=== PATIENT | female | born 1985 | race Hispanic/Latino ===

== ENCOUNTER 2017-04-11 10:28 | Emergency (ER) | payer SELFPAY ==
[2017-04-11 11:05] LABS: Bilirubin Negative (Negative); Blood, Urine Trace (Negative); Glucose, Urine (Dipstick) Negative (Negative); Leukocyte Negative (Negative); Nitrite Negative (Negative); Protein, Urine (Dipstick) Negative (Neg-Trace); Urobilinogen 0.2 mg/dL (0.2-1.0)
[2017-04-11 11:07] LABS: Clarity HAZY (Clear)
[2017-04-11 11:08] LABS: Pregnancy Test - Urine (BHCG) Negative (Negative); Pregu Control Background? CLEAR/WHITE (CLR/WHITE); Pregu Control Bar Appear? YES (CONTROL BAR)
[2017-04-11 11:11] LABS: Bacteria/HPF None Seen HPF (None Seen); Hyaline Casts/LPF NONE SEEN LPF (0-3 Hyaline); RBC/HPF 0-3 HPF (0-3); Squamous Epithelial 0-3 HPF (0-3); WBC/HPF None Seen HPF (0-3)
[2017-04-13 21:14] LABS: Chlamydia by PCR Not Detected (NotDetected); GC by PCR Not Detected (NotDetected)
== END 2017-04-11 11:53 | disposition home or self-care (01) ==
LOC: ERS 10:28
DX: R30.0 Dysuria (principal)
CPT/HCPCS: 81003; 81015; 81025; 87491; 87591; 99284

== ENCOUNTER 2017-07-16 23:53 | Emergency (ER) | payer SELFPAY ==
[2017-07-17 00:24] LABS: #Basophils 0.1 thou/uL (0.0-0.2); #Eosinphils 0.1 thou/uL (0.0-0.7); #Lymphocytes 2.6 thou/uL (1.20-3.40); #Monocytes 0.5 thou/uL (0.11-0.59); #Neutrophils 5.5 thou/uL (1.40-6.50); %Basophils 0.7 % (0.0-1.0); %Eosinophils 1.4 % (0.0-10.0); %Lymphocytes 29.6 % (21.0-51.0); %Neutrophils 62.3 % (42.0-75.0); Hemoglobin 14.6 g/dL (12.0-16.0); Mean Corpuscular HGB CONC 34.2 g/dL (32.0-36.0); Mean Corpuscular Hemoglobin 30.8 pg (27.0-31.0); Mean Corpuscular Volume 90.1 fl (81.0-99.0); Mean Platelet Volume 6.4 fL (7.4-10.4); Platelet Count 315 thou/uL (130-400); Red Blood Cell (RBC) Count 4.73 mill/uL (4.20-5.40); White Blood Cell (WBC) Count 8.8 thou/uL (4.8-10.8)
[2017-07-17 00:47] LABS: ALT (SGPT) 20 U/L (8-55); AST (SGOT) 19 U/L (5-34); Albumin 4.1 g/dL (3.5-5.0); Alkaline Phosphatase 85 U/L (40-150); Anion Gap 10 mmol/L (10-20); BUN (Urea Nitrogen) 11 mg/dL (7.0-18.7); Bilirubin, Total 0.3 mg/dL (0.2-1.2); Calc. Creatinine Clearance 0 mL/min (70-130); Calcium 9.5 mg/dL (7.8-10.44); Carbon Dioxide 27 mmol/L (22-29); Chloride 104 mmol/L (98-107); Estimated GFR-MDRD Greater than 90; Globulin 3.2 g/dL (2.4-3.5); Glucose 88 mg/dL (70-105); Lipase 23 U/L (8-78); Potassium 3.8 mmol/L (3.5-5.1); Protein, Total 7.3 g/dL (6.0-8.3); Sodium 137 mmol/L (136-145)
[2017-07-17] MEDS ORDERED: Mag-Al 1200 mg/1200 mg/30 ML UDCUP ONE (00:53)
[2017-07-17] MEDS ORDERED: Lidocaine Viscous Sol 2% 15 ml UD Cup ONE (00:53)
[2017-07-17] MEDS ORDERED: Famotidine 20 MG TAB ONE (00:53)
[2017-07-17] MEDS ORDERED: Ondansetron ODT 4 MG TAB ONE (00:53)
[2017-07-17 00:57] LABS: Bilirubin Negative (Negative); Blood, Urine Negative (Negative); Clarity CLEAR (Clear); Glucose, Urine (Dipstick) Negative (Negative); Leukocyte Negative (Negative); Nitrite Negative (Negative); Protein, Urine (Dipstick) Trace mg/dL (Neg-Trace); Specific Gravity, Urine 1.023 (1.002-1.036); pH, Urine 7.5 (5.0-9.0)
[2017-07-17 01:13] LABS: Pregnancy Test - Urine (BHCG) Negative (Negative); Pregu Control Background? CLEAR/WHITE (CLR/WHITE); Pregu Control Bar Appear? YES (CONTROL BAR); Specific Gravity 1.023 (1.002-1.036)
== END 2017-07-17 02:55 | disposition home or self-care (01) ==
LOC: ERS 23:53
DX: K29.70 Gastritis, unspecified, without bleeding (principal)
CPT/HCPCS: 80053; 81003; 81025; 83690; 85025; 96360; Q0162

== ENCOUNTER 2017-11-18 09:39 | Emergency (ER) | payer SELFPAY ==
[2017-11-18 10:36] LABS: BHCG - Serum Negative (NEGATIVE); Pregs Control Background? CLEAR/WHITE (CLR/WHITE); Pregs Control Bar Appear? YES (CONTROL BAR)
[2017-11-18 11:20] LABS: Bilirubin Negative (Negative); Blood, Urine Negative (Negative); Glucose, Urine (Dipstick) Negative (Negative); Leukocyte Negative (Negative); Nitrite Negative (Negative); Protein, Urine (Dipstick) Negative (Neg-Trace); Specific Gravity, Urine 1.015 (1.005-1.030); Urobilinogen 0.2 mg/dL (0.2-1.0)
[2017-11-18 11:21] LABS: Clarity CLEAR (Clear)
[2017-11-21 05:32] LABS: Chlamydia by PCR Not Detected (NotDetected); GC by PCR Not Detected (NotDetected)
== END 2017-11-18 11:45 | disposition home or self-care (01) ==
LOC: ERS 09:39
DX: N76.0 Acute vaginitis (principal)
CPT/HCPCS: 36415; 81003; 84703; 87480; 87491; 87510; 87591; 87660; 99283

== ENCOUNTER 2017-11-26 23:56 | Emergency (ER) | payer SELFPAY ==
[2017-11-27] MEDS ORDERED: Ketorolac Tromethamine 30 MG/ML VIAL ONE (01:08)
[2017-11-27 01:22] LABS: #Basophils 0.1 thou/uL (0.0-0.2); #Eosinphils 0.3 thou/uL (0.0-0.7); #Lymphocytes 2.7 thou/uL (1.20-3.40); #Monocytes 0.5 thou/uL (0.11-0.59); #Neutrophils 4.7 thou/uL (1.40-6.50); %Basophils 1.2 % (0.0-1.0); %Eosinophils 3.1 % (0.0-10.0); %Lymphocytes 32.9 % (21.0-51.0); %Monocytes 5.5 % (0.0-10.0); %Neutrophils 57.3 % (42.0-75.0); Hemoglobin 12.7 g/dL (12.0-16.0); Mean Corpuscular Hemoglobin 30.3 pg (27.0-31.0); Mean Corpuscular Volume 91.8 fL (78.0-98.0); Mean Platelet Volume 6.6 fL (7.4-10.4); Platelet Count 413 thou/uL (130-400); White Blood Cell (WBC) Count 8.2 thou/uL (4.8-10.8)
[2017-11-27 01:32] LABS: BHCG - Serum Negative (NEGATIVE); Pregs Control Background? CLEAR/WHITE (CLR/WHITE); Pregs Control Bar Appear? YES (CONTROL BAR)
[2017-11-27 01:42] LABS: Bilirubin Negative (Negative); Blood, Urine Large (Negative); Clarity CLOUDY (Clear); Glucose, Urine (Dipstick) Negative (Negative); Leukocyte Small (Negative); Nitrite Negative (Negative); Protein, Urine (Dipstick) Negative (Neg-Trace); Specific Gravity, Urine 1.025 (1.002-1.036); Urobilinogen 0.2 mg/dL (0.2-1.0); pH, Urine 6.5 (5.0-9.0)
[2017-11-27 01:44] LABS: Bacteria/HPF None Seen HPF (None Seen); Hyaline Casts/LPF 4-6 HYALINE CAST LPF (0-3 Hyaline); Pathc Cast-AUWi Flag 1.16 (0-2.49); RBC/HPF GREATER THAN 50-TNTC HPF (0-3); Squamous Epithelial 0-3 HPF (0-3); WBC/HPF 21-50 HPF (0-3)
[2017-11-27 01:47] LABS: ALT (SGPT) 17 U/L (8-55); AST (SGOT) 18 U/L (5-34); Albumin 3.7 g/dL (3.5-5.0); Alkaline Phosphatase 95 U/L (40-150); Anion Gap 11 mmol/L (10-20); BUN (Urea Nitrogen) 11 mg/dL (7.0-18.7); Bilirubin, Total 0.2 mg/dL (0.2-1.2); Calc. Creatinine Clearance 0 mL/min (70-130); Calcium 9.2 mg/dL (7.8-10.44); Carbon Dioxide 25 mmol/L (22-29); Chloride 106 mmol/L (98-107); Estimated GFR-MDRD Greater than 90; Glucose 90 mg/dL (70-105); Potassium 3.8 mmol/L (3.5-5.1); Protein, Total 6.7 g/dL (6.0-8.3); Sodium 138 mmol/L (136-145)
[2017-11-27 01:55] LABS: Crystals/HPF 1+ CA OXALATE HPF (Negative)
[2017-11-27 01:56] LABS: Renal Epithelial None Seen HPF (0-3); Transitional Epithelial NONE SEEN HPF (0-3)
--- NOTE | 2017-11-27 11:04 | ULT ---
PRELIMINARY REPORT/[facility]/EMERGENCY AFTER HOURS PROCEDURE: EXAM: US Pelvis Complete, Transabdominal CLINICAL HISTORY: 32 years old, female; Pain; Other: Pelvic pain, heavy vag bleeding, +clots; Prior surgery; Surgery da te: 6+ months; Surgery type: TECHNIQUE: Real-time transabdominal pelvic ultrasound (complete) with image documentation. COMPARISON: No relevant prior studies available. FINDINGS: The uterus appears somewhat enlarged, measuring 12.5 cm in length. Round to oval echogenic area/"mass" in the region of the lower uterine segment/cervix. This area measures 45 x 38 x 40 mm. The appearance is nonspecific. Possibly this could represent clot in the lower uterine segment. However, this might represent some type of uterine/cervical mass or polyp. Appropriate gynecological workup/followup recommended, as clinically directed. Endometrial thickness the fundus of the uterus is 2.2 mm mm. There is no free pelvic fluid. The right ovary appears unremarkable. The left ovary appears unremarkable. Blood flow detected in each ovary. The urinary bladder was not completely evaluated/imaged at this time. IMPRESSION: 45 x 38 x 40 mm echogenic area/"mass" in the region of the lower uterine segment/cervix. The appearance is nonspecific. Possibly this could represent clot in the lower uterine segment. However, this might represent some type of uterine/cervical mass or polyp. See above discussion. Essentially unremarkable sonographic appearance of the ovaries. Other details discussed above. EXAM: US Pelvis, Transvaginal CLINICAL HISTORY: 32 years old, female; Pain; Other: Pelvic pain, heavy vag bleeding, +clots; Prior surgery; Surgery da te: 6+ months; Surgery type: TECHNIQUE: Real-time transvaginal pelvic ultrasound (complete) with image documentation. Transvaginal imaging wa s used for better evaluation of the endometrium and adnexa. COMPARISON: No relevant prior studies available. FINDINGS: The uterus appears somewhat enlarged, measuring 12.5 cm in length. Round to oval echogenic area/"mass" in the region of the lower uterine segment/cervix. This area measures 45 x 38 x 40 mm. The appearance is nonspecific. Possibly this could represent clot in the lower uterine segment. However, this might represent some type of uterine/cervical mass or polyp. Appropriate gynecological workup/followup recommended, as clinically directed. Endometrial thickness the fundus of the uterus is 2.2 mm. There is no free pelvic fluid. The right ovary appears unremarkable. The left ovary appears unremarkable. Blood flow detected in each ovary. The urinary bladder was not completely evaluated/imaged at this time. Endovaginal scanning provided better visualization/evaluation of the endometrium and ovaries/adnexal regions as discussed above. IMPRESSION: 45 x 38 x 40 mm echogenic area/"mass" in the region of the lower uterine segment/cervix. The appearance is nonspecific. Possibly this could represent clot in the lower uterine segment. However, this might represent some type of uterine/cervical mass or polyp. See above discussion. Essentially unremarkable sonographic appearance of the ovaries. Other details discussed above. Thank you for allowing us to participate in the care of your patient. Dictated and Authenticated by: Paulo Suazo MD 11/27/2017 3:05 AM Central Time ([place] & [place]) FINAL REPORT EMERGENT AFTER HOURS PELVIC ULTRASOND: DATE: 11/27/17. TECHNIQUE: Multiple transabdominal and endovaginal sonographic images of the pelvis are obtained. HISTORY: Heavy vaginal bleeding with clots, pelvic pain. IMPRESSION: 1. Enlarged uterus measuring 12.5 cm x 4.3 cm x 5.8 cm. 2. Slightly heterogeneous oval mass-like structure in the region of the lower uterine segment/cervix measuring 4.5 cm x 3.8 cm x 4 cm. This appearance is nonspecific and could potentially represent he morrhage/clot in the lower uterine segment, although a mass in this region cannot be entirely exclude d. Short interval followup examination may be helpful to ensure resolution. 3. Normal-appearing bilateral ovaries. Doppler evaluation of each ovary with spectral analysis and color flow evaluation demonstrates venous flow in each ovary as well as arterial flow in the right ov apple. Arterial flow in the left ovary is difficult to definitely elicit, but some of the provided saturnino ges suggest that there is arterial flow. 4. No free fluid in the cul-de-sac. 5. Findings are in agreement with the preliminary report by [facility]. POS: [facility]
== END 2017-11-27 03:46 | disposition home or self-care (01) ==
LOC: ERS 23:56
DX: N92.0 Excessive and frequent menstruation with regular cycle (principal)
CPT/HCPCS: 76856; 80053; 81003; 81015; 84703; 85025; 87086; 96374; J1885

== ENCOUNTER 2017-12-02 07:19 | Emergency (ER) | payer SELFPAY ==
[2017-12-02] MEDS ORDERED: Ketorolac Tromethamine 30 MG/ML VIAL ONE (08:16)
[2017-12-02 08:29] LABS: Bilirubin Negative (Negative); Blood, Urine Negative (Negative); Clarity CLEAR (Clear); Glucose, Urine (Dipstick) Negative (Negative); Leukocyte Moderate (Negative); Nitrite Negative (Negative); Protein, Urine (Dipstick) Negative (Neg-Trace); Specific Gravity, Urine 1.018 (1.002-1.036); Urobilinogen 0.2 mg/dL (0.2-1.0)
[2017-12-02 08:31] LABS: Bacteria/HPF None Seen HPF (None Seen); Hyaline Casts/LPF 0-3 HYALINE CAST LPF (0-3 Hyaline); Pathc Cast-AUWi Flag 0.29 (0-2.49); RBC/HPF 0-3 HPF (0-3); Squamous Epithelial 0-3 HPF (0-3); WBC/HPF 21-50 HPF (0-3)
[2017-12-02 08:37] LABS: #Basophils 0.1 thou/uL (0.0-0.2); #Eosinphils 0.2 thou/uL (0.0-0.7); #Lymphocytes 2.3 thou/uL (1.20-3.40); #Monocytes 0.4 thou/uL (0.11-0.59); #Neutrophils 5.3 thou/uL (1.40-6.50); %Basophils 0.8 % (0.0-1.0); %Eosinophils 2.3 % (0.0-10.0); %Lymphocytes 27.7 % (21.0-51.0); %Monocytes 5.1 % (0.0-10.0); %Neutrophils 64.2 % (42.0-75.0); Hemoglobin 13.2 g/dL (12.0-16.0); Mean Corpuscular HGB CONC 32.5 g/dL (32.0-36.0); Mean Corpuscular Hemoglobin 29.3 pg (27.0-31.0); Mean Corpuscular Volume 90.4 fL (78.0-98.0); Mean Platelet Volume 6.4 fL (7.4-10.4); Platelet Count 379 thou/uL (130-400); RBC Distribution Width 11.7 % (11.5-14.5); Red Blood Cell (RBC) Count 4.49 mill/uL (4.20-5.40); White Blood Cell (WBC) Count 8.2 thou/uL (4.8-10.8)
[2017-12-02 08:50] LABS: BHCG - Serum Negative (NEGATIVE); Pregs Control Background? CLEAR/WHITE (CLR/WHITE); Pregs Control Bar Appear? YES (CONTROL BAR)
[2017-12-02 09:05] LABS: ALT (SGPT) 20 U/L (8-55); AST (SGOT) 20 U/L (5-34); Albumin 3.9 g/dL (3.5-5.0); Alkaline Phosphatase 98 U/L (40-150); Anion Gap 10 mmol/L (10-20); BUN (Urea Nitrogen) 11 mg/dL (7.0-18.7); Bilirubin, Total 0.2 mg/dL (0.2-1.2); Calc. Creatinine Clearance 0 mL/min (70-130); Calcium 9.3 mg/dL (7.8-10.44); Carbon Dioxide 27 mmol/L (22-29); Chloride 104 mmol/L (98-107); Estimated GFR-MDRD Greater than 90; Globulin 3.6 g/dL (2.4-3.5); Glucose 85 mg/dL (70-105); Potassium 4.2 mmol/L (3.5-5.1); Protein, Total 7.5 g/dL (6.0-8.3); Sodium 137 mmol/L (136-145)
== END 2017-12-02 09:30 | disposition home or self-care (01) ==
LOC: ERS 07:19
DX: R19.00 Intra-abdominal and pelvic swelling, mass and lump, unspecified site (principal); N39.0 Urinary tract infection, site not specified; Z79.899 Other long term (current) drug therapy
CPT/HCPCS: 80053; 81003; 81015; 84703; 85025; 96372; J1885

== ENCOUNTER 2022-09-09 11:44 | Emergency (ER) | payer BC | END 2022-09-09 14:20 | disposition home or self-care (01) | LOC: ERS 11:44 | DX: S93.402A Sprain of unspecified ligament of left ankle, initial encounter (principal); W18.30XA Fall on same level, unspecified, initial encounter ==